=== PATIENT | female | born 1990 | race Caucasian/White ===

== ENCOUNTER → 2019-07-15 | Outpatient (CLI) | payer BC ==
--- NOTE | 2019-07-15 17:23 | RAD ---
Exam is an: Ultrasound pelvis HISTORY: History of dysfunctional uterine bleeding COMPARISON: None available FINDINGS: The uterus measures 9.1 x 5.6 x 3.5 cm. The endometrium measures 8.2 mm in thickness. The right ovary measures 3.2 x 1.60 1.8 cm. The left ovary measures 2.0 x 1.8 x 1.2 cm. Blood flow identified in the right and left ovaries. There is a small 1.1 cm fibroid identified in the left uterus. IMPRESSION: 1. 1.1 cm hypodensity identified in the left uterus probably a fibroid. Electronically signed by: Miguel Angel Rao MD (07/15/2019 5:20 PM) [place] [id number]
== END | disposition home or self-care (01) ==
LOC: US 10:41
PROVIDERS: ATTEND Physician Assistant Medical
DX: N93.8 Other specified abnormal uterine and vaginal bleeding (principal)
CPT/HCPCS: 76856